=== PATIENT | female | born 1975 | race Two or more races ===

== ENCOUNTER 2021-03-12 06:40 | Emergency (ER) | payer OTHER ==
[2021-03-12 06:47] VITALS: TEMP 97.8; BMI 32.5
[2021-03-12] MEDS ORDERED: FAMOTIDINE 20 MG/50 ML IVPB 20 MG/50 ML MG IVPB ONE ×2 (07:19→07:27)
[2021-03-12] MEDS ORDERED: ACETAMINOPHEN 1000 MG/100 ML VIAL (NON FORMULARY) IVPB ONE ×2 (07:19→13:26)
[2021-03-12] MEDS ORDERED: LACTATED RINGERS SOLUTION 1,000 ML/1,000 ML INFUS.BAG IV STA (07:20)
[2021-03-12] MEDS ORDERED: ACETAMINOPHEN INJECTION 100 ML IVPB ONE ×2 (07:27→13:19)
[2021-03-12 08:51] LABS: BASO % 0.7 % (0-2.0); EOS % 2.9 % (0-4.5); HEMATOCRIT 41.3 % (32.4-45.2); HEMOGLOBIN 13.9 GM/dl (10.7-15.3); LYMPH % 23.4 % (8-40); MCH 29.4 pg (25.7-33.7); MCHC 33.5 g/dl (32.0-36.0); MEAN CELL VOLUME 87.5 fl (80-96); MONO % 5.6 % (3.8-10.2); NEUT % 67.4 % (42.8-82.8); PLATELET COUNT 348 K/MM3 (134-434); RBC 4.72 M/mm3 (3.60-5.2); RDW 12.4 % (11.6-15.6); WHITE BLOOD COUNT 7.2 K/mm3 (4.0-10.8)
[2021-03-12 08:58] LABS: ALBUMIN 4.2 g/dl (3.4-5.0); BILIRUBIN,TOTAL 0.6 mg/dl (0.2-1); CALCIUM 9.4 mg/dl (8.5-10); CREATININE 0.8 mg/dl (0.55-1.3); TOT PROT 7.9 g/dl (6.4-8.2)
[2021-03-12 09:24] LABS: EPITHELIAL CELLS FEW /hpf
[2021-03-12] MEDS ORDERED: SODIUM CHLORIDE 0.9% 500 ML INFUS.BAG IV ONE (10:00)
[2021-03-12 11:40] VITALS: BP 104/69; PULSE 68
[2021-03-12] MEDS ORDERED: CEFTRIAXONE 1,000 MG in DEXTROSE 5%-WATER - 50 ML IVPB ONE (12:01)
[2021-03-12] MEDS ORDERED: cefTRIAXone SODIUM 1 GM VIAL ONE (12:08)
== END 2021-03-12 16:10 | disposition left against medical advice (07) ==
LOC: FER 06:40
PROC: 3E0333Z Introduction of Anti-inflammatory into Peripheral Vein, Percutaneous Approach (ICD-10-PCS; principal; 2021-03-12)
PROC: 3E0333Z Introduction of Anti-inflammatory into Peripheral Vein, Percutaneous Approach (ICD-10-PCS; 2021-03-12)
PROC: 3E03329 Introduction of Other Anti-infective into Peripheral Vein, Percutaneous Approach (ICD-10-PCS; 2021-03-12)
PROC: 3E033GC Introduction of Other Therapeutic Substance into Peripheral Vein, Percutaneous Approach (ICD-10-PCS; 2021-03-12)
DX: K80.80 Other cholelithiasis without obstruction (principal); R94.5 Abnormal results of liver function studies; N39.0 Urinary tract infection, site not specified
CPT/HCPCS: 36415; 76705-TC; 80053; 81003; 81015; 83690; 83735; 84703; 85025; 87086; 93005; 99285-25; C9803; J0131; U0003; U0005